=== PATIENT | female | born 1995 | race Caucasian/White ===

== ENCOUNTER 2019-10-19 23:44 | Emergency (ER) | payer MEDICAID, SELFPAY ==
[2019-10-19 23:44] VITALS: BP 137/84; PULSE 119; RESP 16; TEMP 36.7; O2SAT 100; BMI 23.6
--- NOTE | 2019-10-19 23:47 | PC.NURSE ---
spoke to poision control. they advised to check cbc, bmp, ck, drug screen. monitor pt for 4-6 hours after ingestion. give benzos for aggitation.
--- NOTE | 2019-10-19 23:49 | PC.NURSE ---
pt took a half of pack of medicated nerds rope. each package is 8 servings with 400mg of thc per servicing. pt took approx 1600 mg of thc.
[2019-10-19 23:55] VITALS: BMI 23.6
--- NOTE | 2019-10-20 00:12 | XR_ITS ---
PROCEDURE: XR CHEST 2V CLINICAL HISTORY: overdose Smoker COMPARISON: No exams were available for comparison FINDINGS: There is a pectus deformity which obscures the right side of the heart. Unremarkable cardiovascular structures. There is increased density along the right heart border consistent with underlying pectus deformity. Ill-defined increased density is present over the T10 vertebral body anteriorly possibly due to summation artifact. Cannot exclude underlying nodule. Follow-up is suggested. The remaining lungs are clear No acute bony abnormalities. IMPRESSION: No acute finding. Pectus deformity. Increased density overlying the T10 vertebral body on the lateral view possibly due to summation artifact. Follow-up suggested as underlying nodule cannot be excluded Dictated by: Babar Douglas MD 10/20/2019 05:25 Electronically signed by Babar Douglas MD in [place] 10/20/2019 05:25
--- NOTE | 2019-10-20 00:16 | HMH.EDOD ---
ED Disposition Clinical Impression: Accidental cannabis overdose Qualifiers: Encounter type: initial encounter Qualified Code(s): T40.7X1A - Poisoning by cannabis (derivatives), accidental (unintentional), initial encounter Disposition: Home, Self-Care Condition on Discharge: Good Instructions: DI for Drug Overdose in Adults Additional Instructions: call pcp for follow up Referrals: Provider,Referral, [Primary Care Provider] - - Critical Care Critical Care Time: No Attestation: On 10/19/19, the high probability of a clinically significant, sudden or life threatening deterioration of the following system(s) required my full and direct attention, intervention and personal management. The time I documented below is in addition to time spent performing reported procedures but includes the following listed in this critical care notation. Medical Decision Making - Medical Records Medical records reviewed: Yes: I reviewed the patient's medical records. - Georges Inquiry Pt receiving controlled substance: No Vital Signs: 10/19/19 23:44 10/20/19 01:06 Temperature 98.1 F Temperature Source Oral Pulse Rate [Left Radial] 119 H 93 H Respiratory Rate 16 16 Blood Pressure [Right Arm] 137/84 126/76 Blood Pressure Mean [Right Arm] 101 92 Blood Pressure Source [Right Arm] Automatic Cuff Blood Pressure Position [Right Arm] Sitting 02 Sat by Pulse Oximetry 100 98 Oxygen Delivery Method Room Air Room Air - Lab Data Lab results reviewed: Yes: I reviewed the patient's lab results. Lab Results 10/19/19 23:40: WBC 13.8 H, RBC 4.54, Hgb 13.5, Hct 39.8, MCV 87.8, MCH 29.8, MCHC 34.0, RDW 12.1, Plt Count 432 H, MPV 7.9, Neut % (Auto) 66.9, Lymph % (Auto) 27.2, Anderson % (Auto) 4.0, Eos % (Auto) 1.4, Baso % (Auto) 0.5, Neut # (Auto) 9.2 H, Lymph # (Auto) 3.8, Anderson # (Auto) 0.6, Eos # (Auto) 0.2, Baso # (Auto) 0.1 10/19/19 23:40: Sodium 139, Potassium 3.2 L, Chloride 103, Carbon Dioxide 25, Anion Gap 14.2, BUN 15, Creatinine 0.80, Estimated Creat Clear 122, Estimated GFR 90, Est GFR ( Amer) 109, Glucose 158 H, Calcium 9.5, Total Bilirubin 0.2, AST 51 H, ALT 22, Alkaline Phosphatase 75, Troponin I < 0.01, Total Protein 8.1, Albumin 4.9, Globulin 3.2, Albumin/Globulin Ratio 1.5, Salicylates < 1.0 L, Acetaminophen < 10 L 10/19/19 23:40: Plasma/Serum Alcohol < 10 10/19/19 23:40: Total Creatine Kinase 124 10/20/19 00:08: Urine Color Yellow, Urine Appearance Cloudy, Urine pH 6.0, Ur Specific [place] >= 1.030, Urine Protein 2+, Urine Glucose (UA) Negative, Urine Ketones Trace, Urine Blood Negative, Urine Nitrate Negative, Urine Bilirubin Negative, Urine Urobilinogen 0.2, Ur Leukocyte Esterase Negative, Urine WBC Occasional, Ur Squamous Epith Cells 10-20, Amorphous Sediment Trace, Urine Mucus 4+ 10/20/19 00:08: Urine HCG, Qual Negative 10/20/19 00:08: Urine Opiates Screen Negative, Urine Methadone Screen Negative, Ur Barbituates Screen Negative, Ur Phencyclidine Scrn Negative, Ur Amphetamines Screen Negative, U Benzodiazepines Scrn Negative, Urine Cocaine Screen Negative, U Marijuana (THC) Screen Positive H Result diagrams: 10/19/19 23:40 10/19/19 23:40 Orders (Tests/Meds): ED MEDICATIONS Generic Name Dose Route Start Last Admin Trade Name Freq PRN Reason Stop Dose Admin Sodium Chloride 1,000 mls @ 999 mls/hr 10/20/19 00:15 10/20/19 00:15 Sod Chlor 0.9% 1000ml Bag IV 10/20/19 01:15 999 mls/hr .Q1H1M BOBY Administration ORDERS Category Date Time Status XR chest 2V Stat Exams 10/20/19 00:12 Ordered Troponin I Q3H Lab 10/20/19 03:15 Ordered Troponin I Q3H Lab 10/20/19 06:15 Ordered - Radiology Data #1 Image(s): Chest Image Reviewed: Yes I reviewed the patient's radiology image Preliminary Findings: Normal/NAD - Reevaluation(s) Time: 01:15 Reevaluation #1: doing ok Medical Decision Narrative: discussed with poison control Overdose HPI - General Chief Complaint: Overdose State
[2019-10-20 00:21] LABS: Basophils # 0.1 K/mm3 (0-0.2); Basophils % 0.5 % (0.1-2.0); Eosinophils # 0.2 K/mm3 (0.0-0.4); Eosinophils % 1.4 % (0.1-12.0); Hematocrit 39.8 % (37.0-47.0); Hemoglobin 13.5 g/dL (12.2-16.2); Lymphocytes # 3.8 K/mm3 (0.7-4.5); Lymphocytes % 27.2 % (10-50); Mean Corpuscular Hemoglobin 29.8 pg (27.0-31.2); Mean Corpuscular Volume 87.8 fl (81-99); Mean Platelet Volume 7.9 fl (7.4-10.4); Monocytes # 0.6 K/mm3 (0.1-1.0); Neutrophils # 9.2 K/mm3 (1.8-7.8); Neutrophils % 66.9 % (37.0-80.0); Platelet Count 432 K/mm3 (142-424); Red Blood Count 4.54 M/mm3 (4.20-5.40); Red Cell Distribution Width 12.1 % (11.5-17.5); White Blood Count 13.8 K/mm3 (4.8-10.8)
[2019-10-20 00:22] LABS: Microscopic, Urine URINE MICROSCOPIC (MICROSCOPIC)
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
[2019-10-20 00:29] LABS: Alanine Aminotransferase 22 U/L (12-78); Albumin Level 4.9 g/dl (3.5-5.0); Albumin/Globulin Ratio 1.5 (1.1-1.8); Alkaline Phosphatase 75 U/L (38-126); Anion Gap 14.2 mEq/L (5-15); Aspartate Amino Transferase 51 U/L (14-36); Bilirubin,Total 0.2 mg/dl (0.2-1.3); Blood Urea Nitrogen 15 mg/dl (7-17); Calcium 9.5 mg/dl (8.4-10.2); Carbon Dioxide 25 mmol/L (22.0-30.0); Chloride 103 mmol/L (98-107); Creatinine Clearance Estimated 122 mL/min (50-200); Estimated Glomerular Filt Rate 90 ml/min (>60); GFR (African American) 109 ML/MIN (>60); Globulin 3.2 g/dL (1.3-3.2); Glucose 158 mg/dl (74-100); Potassium 3.2 mmoL/L (3.5-5.1); Sodium 139 mmol/L (136-145); Total Protein,Serum 8.1 g/dl (6.3-8.2)
[2019-10-20 00:33] LABS: Urine Pregnancy, HCG Qual. Negative (Negative)
[2019-10-20 00:37] LABS: Creatine Kinase 124 U/L (30-135)
[2019-10-20 00:38] LABS: Appearance,Urine CLOUDY (Clear); Bilirubin,Urine Negative (Negative); Blood, Urine Negative (Negative); Color,Urine YELLOW (Yellow); Glucose,Urine (UA) Negative (Negative); Ketones,Urine TRACE (Negative); Leukocyte Esterase,Urine Negative (Negative); Nitrate,Urine Negative (Negative); Protein,Urine 2+ (Negative); Specific Gravity, Urine >= 1.030 (1.005-1.030); Urobilinogen,Urine 0.2 EU/dl (0.2)
[2019-10-20 00:38] LABS: Acetaminophen < 10 ug/ml (10-30); Ethyl Alcohol < 10 mg/dl (0-10); Salicylate < 1.0 mg/dL (2.0-20.0)
[2019-10-20 00:40] LABS: Barbiturates Screen,Urine Negative ng/ml (<200); Benzodiazepines Screen,Urine Negative ng/ml (<200)
[2019-10-20 00:40] LABS: Troponin I < 0.01 ng/ml (0.00-0.034)
[2019-10-20 00:41] LABS: Amphetamine/Metha Screen,Urine Negative ng/ml (<1000)
[2019-10-20 00:42] LABS: Cannabinoid Screen,Urine Positive ng/ml (<50); Cocaine Screen,Urine Negative ng/ml (<300)
[2019-10-20 00:43] LABS: Methadone Screen,Urine Negative ng/ml (<300); Opiate Screen,Urine Negative ng/ml (<300)
[2019-10-20 00:44] LABS: Phencyclidine Screen,Urine Negative ng/ml (<25)
[2019-10-20 00:46] LABS: Amorphous Sediment,Urine Trace /lpf; Mucus,Urine 4+ /lpf; WBC,Urine Occasional #/hpf (0-3)
--- NOTE | 2019-10-20 00:47 | PC.NURSE ---
patient requested Darryl Kelvin [phone] be updated her condition. Update given.
[2019-10-20 01:06] VITALS: BP 126/76; PULSE 93; RESP 16; O2SAT 98
--- NOTE | 2019-10-20 01:30 | PC.NURSE ---
spoke with Josi from poison control on pt updated condition and plan for discharge in a couple of hours
[2019-10-20 02:00] VITALS: BP 108/58; PULSE 75; RESP 16; O2SAT 99
[2019-10-20 02:30] VITALS: BP 107/58; PULSE 75; RESP 18; O2SAT 99
[2019-10-20 03:26] VITALS: BP 103/67; PULSE 77; RESP 16; TEMP 36.7; O2SAT 98
--- NOTE | 2019-10-22 12:01 | PC.NURSE ---
Spoke with Gal in rad about some findings on the chest x-ray. Pt had Dr. Glass listed as PCP in [facility]. Called and let them know pt had abnormalities on her chest x-ray. She asked that we fax the report over to the office. Called Gal back and gave her the fax number of so that she could fax the reports over to the physicians office. She advised she would.
== END 2019-10-20 03:29 | disposition home or self-care (01) ==
PROVIDERS: Emergency Provider Emergency Medicine
DX: T40.7X1A Poisoning by cannabis (derivatives), accidental (unintentional), initial encounter (principal); F17.210 Nicotine dependence, cigarettes, uncomplicated
CPT/HCPCS: 71046; 80053; 80305; 80329; 81001; 81025; 82550; 84484; 85025; 93005; 96365; 99283

== ENCOUNTER 2019-12-16 13:15 | Emergency (ER) | payer MEDICAID, SELFPAY ==
--- NOTE | 2019-12-16 13:28 | HMH.EDUTC ---
[facility] [place] Clinical Impression: UTI (urinary tract infection) Qualifiers: Urinary tract infection type: site unspecified Hematuria presence: with hematuria Qualified Code(s): N39.0 - Urinary tract infection, site not specified Disposition: Home, Self-Care Condition on Discharge: Good Instructions: Urinary Tract Infection Additional Instructions: Drink plenty of fluids. Take tylenol or ibuprofen for pain or fever. Take the medications as directed. Follow up with your regular doctor. GO TO THE ER FOR ANY WORSENING SYMPTOMS Follow up with your regular doctor if you're not getting better with in a couple of days. We sent the urine for a culture, but this takes 3 days to complete. Prescriptions: Ondansetron [Zofran 4mg ODT] 4 mg PO Q8HP PRN #20 tab.rapdis PRN Reason: Nausea Transmission Status: Received by [facility] Sulfamethoxazole/Trimethoprim [Bactrim DS tablet] 1 each PO BID 7 Days #14 tab Transmission Status: Received by [facility] Phenazopyridine HCl [Pyridium 200mg Tablet] 200 pow PO TID #6 tab Transmission Status: Received by [facility] Referrals: Joshua Glass [Primary Care Provider] - Time of Disposition: 13:53 Medical Decision Making - Medical Records Medical records reviewed: No: I reviewed the patient's medical records. - Georges Inquiry Pt receiving controlled substance: No Vital Signs: 12/16/19 13:37 12/16/19 13:54 Temperature 98.1 F 98.1 F Temperature Source Oral Pulse Rate 73 Pulse Rate [Right Brachial] 73 Respiratory Rate 20 20 Blood Pressure 138/84 Blood Pressure [Right Arm] 138/84 Blood Pressure Mean [Right Arm] 102 Blood Pressure Source [Right Arm] Automatic Cuff Blood Pressure Position [Right Arm] Sitting 02 Sat by Pulse Oximetry 98 Oxygen Delivery Method Room Air - Lab Data Lab results reviewed: Yes: I reviewed the patient's lab results. Lab Results 12/16/19 13:49: Urine Color Yellow, Urine Appearance Clear, Urine pH 6.0, Ur Specific [place] 1.030, Urine Protein 3+, Urine Glucose (UA) Negative, Urine Ketones Negative, Urine Blood 3+, Urine Nitrate Negative, Urine Bilirubin Negative, Urine Urobilinogen 1, Ur Leukocyte Esterase Trace [facility] [place] - General Stated complaint: possible UTI Time Seen by Provider: 12/16/19 13:29 - History of Present Illness Provider Complaint: She c/o burning while urinating, low back discomfort and seeing some blood in her urine since last night. She states that her symptoms began kind of abruptly. She does not have a history of frequent uti's. She states that her period is not late and she could not be . - Related Data Previous Rx's Medication Instructions Recorded Ondansetron [Zofran 4mg ODT] 4 mg PO Q8HP PRN #20 tab.rapdis 12/16/19 Phenazopyridine HCl [Pyridium 200 pow PO TID #6 tab 12/16/19 200mg Tablet] Sulfamethoxazole/Trimethoprim 1 each PO BID 7 Days #14 tab 12/16/19 [Bactrim DS tablet] Allergies Allergy/AdvReac Type Severity Reaction Status Date / Time codeine [CODEINE] Allergy Unknown Verified 03/02/19 13:06 [facility] History - Hepatitis A Screen Attestation statement:: This patient has been screened for Hepatitis A risk factors. I have reviewed the patient's past medical history: Yes - Social History Smoking Status: Current every day smoker # Packs/Day (cigarettes): 1 Alcohol Intake: current Alcohol Intake Frequency:: 0-2 drinks per day Occupational Status: student ROS Obtained: Yes All systems reviewed & no additional complaints - Constitutional Constitutional: Denies chills, Denies fever(s), Reports poor appetite, Reports malaise - Eyes Eyes: Denies eye discharge - ENT Ears, Nose, Mouth, and Throat: Denies dizziness, Denies otalgia, Denies sinus pressure - Cardiovascular Cardiovascular: Denies chest pain - Respiratory Respiratory: No chest congestion, No cough - Gastrointestinal Gastrointestinga
[2019-12-16 13:37] VITALS: BP 138/84; PULSE 73; RESP 20; TEMP 36.7; O2SAT 98; BMI 28.5
[2019-12-16 13:54] VITALS: BP 138/84; PULSE 73; RESP 20; TEMP 36.7; O2SAT 98
[2019-12-16 14:15] LABS: Apearance,Urine Clear (Clear); Color,Urine Yellow (Yellow); Glucose,Urine (UA) Negative (Negative); Ketones,Urine Negative (Negative); Protein,Urine 3+ (Negative)
[2019-12-16 14:16] LABS: Bilirubin,Urine Negative (Negative); Blood, Urine 3+ (Negative); UTC Leukocyte Esterase,Urine Trace (Negative); UTC Nitrate,Urine Negative (Negative); Urobilinogen,Urine 1 EU/dl (0.2)
== END 2019-12-16 13:56 | disposition home or self-care (01) ==
PROVIDERS: Emergency Provider Nurse Practitioner Family; PCP Internal Medicine
DX: N39.0 Urinary tract infection, site not specified (principal); F17.210 Nicotine dependence, cigarettes, uncomplicated; Z88.5 Allergy status to narcotic agent
CPT/HCPCS: 81003; 87086; 87088; 87186; 99201

== ENCOUNTER 2019-12-19 16:29 | Emergency (ER) | payer MEDICAID, SELFPAY ==
[2019-12-19 16:43] VITALS: BP 111/74; PULSE 79; RESP 18; TEMP 36.7; O2SAT 98; BMI 27.3
[2019-12-19 16:45] VITALS: BP 111/74; PULSE 79; RESP 18; TEMP 36.7; O2SAT 98; BMI 27.3
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
[2019-12-19 17:13] VITALS: BP 111/74; PULSE 79; RESP 18; TEMP 36.7; O2SAT 98
== END 2019-12-19 17:20 | disposition home or self-care (01) ==
PROVIDERS: Emergency Provider Nurse Practitioner Family; PCP Internal Medicine
DX: S05.01XA Injury of conjunctiva and corneal abrasion without foreign body, right eye, initial encounter (principal); W51.XXXA Accidental striking against or bumped into by another person, initial encounter; Y92.019 Unspecified place in single-family (private) house as the place of occurrence of the external cause; F17.210 Nicotine dependence, cigarettes, uncomplicated
CPT/HCPCS: 99201

== ENCOUNTER → 2020-01-15 16:31 | Outpatient (CLI) | payer MEDICAID, SELFPAY | PROVIDERS: PCP Internal Medicine; Visit Provider Nurse Practitioner | DX: Z11.1 Encounter for screening for respiratory tuberculosis (principal) ==

== ENCOUNTER → 2020-01-22 13:51 | Outpatient (CLI) | payer MEDICAID, SELFPAY | PROVIDERS: PCP Internal Medicine; Visit Provider Internal Medicine | DX: Z11.1 Encounter for screening for respiratory tuberculosis (principal) ==

== ENCOUNTER 2020-01-28 14:33 | Emergency (ER) | payer MEDICAID, SELFPAY ==
[2020-01-28 14:34] VITALS: BP 138/40; PULSE 87; RESP 19; TEMP 36.7; O2SAT 98; BMI 25.8
--- NOTE | 2020-01-28 14:48 | HMH.EDUTC ---
[facility] [place] Disposition Clinical Impression: Burning with urination Disposition: Home, Self-Care Condition on Discharge: Good Instructions: DI for Urinary Tract Infection (UTI) Additional Instructions: *Increase fluids. Water not Soda or Tea Make sure that you are drinking plenty of fluids and watching for signs of infection such as strong smell of urine, color changes etc Call your doctor office and make appointment for 48 hours (2 days from today) if no improvement or any worsening of symptoms Make sure to follow up Return if needed Straight to ER if any life threatening symptoms Referrals: Joshua Glass [Primary Care Provider] - As needed Time of Disposition: 15:13 Medical Decision Making - Georges Inquiry Pt receiving controlled substance: No Georges was queried for this patient: No Vital Signs: 01/28/20 14:34 Temperature 98.1 F Temperature Source Oral Pulse Rate [Right] 87 Respiratory Rate 19 Blood Pressure [Right Arm] 138/40 L Blood Pressure Mean [Right Arm] 72 02 Sat by Pulse Oximetry 98 - Lab Data Lab results reviewed: Yes: I reviewed the patient's lab results. Lab Results 01/28/20 14:36: Urine Color Yellow, Urine Appearance Clear, Urine pH 6.0, Ur Specific [place] 1.015, Urine Protein Negative, Urine Glucose (UA) Negative, Urine Ketones Negative, Urine Blood 2+, Urine Nitrate Negative, Urine Bilirubin Negative, Urine Urobilinogen 0.2, Ur Leukocyte Esterase Negative 01/28/20 15:05: Tst Clinic Negative [facility] [place] HPI - General Stated complaint: UTI Time Seen by Provider: 01/28/20 14:48 Mode of Arrival: Ambulatory Limitations: No Limitations Description of Symptoms (Recalled from Triage Doc. by RN): Frequent urination x2 days. HEENT Symptoms (Recalled from RN notes): No Resp Symptoms (Recalled from RN notes): No Skin Symptoms (Recalled from RN notes): No MS Symptoms (Recalled from RN notes): No Functional Status (Recalled from RN notes): na - History of Present Illness Provider Complaint: Patient states that she has been having burning with urination, frequency and urgency for the last couple of days and feels like it did when she had a UTI about a month ago States that she thinks she had some blood in her urine earlier so she come in to get checked - Related Data Previous Rx's Medication Instructions Recorded Ondansetron [Zofran 4mg ODT] 4 mg PO Q8HP PRN #20 tab.rapdis 12/16/19 Phenazopyridine HCl [Pyridium 200 pow PO TID #6 tab 12/16/19 200mg Tablet] Sulfamethoxazole/Trimethoprim 1 each PO BID 7 Days #14 tab 12/16/19 [Bactrim DS tablet] Erythromycin Base [Erythromycin 1 cm EYE-RIGHT Q6H 5 Days #1 tube 12/19/19 3.5gm opth oinment] Ibuprofen [Ibuprofen 600mg 600 mg PO Q6HP PRN #30 tab 12/19/19 Tablet] Allergies Allergy/AdvReac Type Severity Reaction Status Date / Time codeine [CODEINE] Allergy Unknown Verified 03/02/19 13:06 - Worker's Comp Is this a Worker's Comp case?: No [facility] History - Hepatitis A Screen Drug use history?: No High risk sexual behaviors?: No History of sexually transmitted infection?: No Currently employed?: No Childcare worker?: No Do you have indoor plumbing?: Yes Do you have electricity?: Yes Attestation statement:: This patient has been screened for Hepatitis A risk factors. I have reviewed the patient's past medical history: Yes - Social History Smoking Status: Current every day smoker # Packs/Day (cigarettes): 1 Alcohol Intake: never Alcohol Intake Frequency:: 0-2 drinks per day Occupational Status: other ROS Obtained: Yes All systems reviewed & no additional complaints, Yes Systems reviewed as appropriate & no additional complaints - Constitutional Constitutional: Reports system reviewed and no additional complaints, except as docu, Denies body ache, Denies chills, Denies fever(s) - Cardiovascular Cardiovascular: Reports system reviewed and no additional complaints, except as docu - Respiratory Respirat
[2020-01-28 15:02] LABS: Apearance,Urine Clear (Clear); Bilirubin,Urine Negative (Negative); Blood, Urine 2+ (Negative); Color,Urine Yellow (Yellow); Glucose,Urine (UA) Negative (Negative); Ketones,Urine Negative (Negative); Protein,Urine Negative (Negative); Specific Gravity, Urine 1.015 (1.005-1.030); UTC Leukocyte Esterase,Urine Negative (Negative); UTC Nitrate,Urine Negative (Negative); Urobilinogen,Urine 0.2 EU/dl (0.2)
[2020-01-28 15:06] LABS: UTC Pregnancy Test, Urine Negative (Negative)
[2020-01-28 15:29] VITALS: BP 132/87; PULSE 80; RESP 17; TEMP 36.7; O2SAT 100
== END 2020-01-28 15:29 | disposition home or self-care (01) ==
PROVIDERS: Emergency Provider Nurse Practitioner; PCP Internal Medicine
DX: R30.0 Dysuria (principal); Z88.5 Allergy status to narcotic agent; F17.210 Nicotine dependence, cigarettes, uncomplicated
CPT/HCPCS: 81003; 81025; 99201

== ENCOUNTER 2020-03-16 13:25 | Emergency (ER) | payer MEDICAID, SELFPAY ==
[2020-03-16 13:56] VITALS: BP 133/77; PULSE 81; RESP 18; TEMP 36.6; O2SAT 99; BMI 26.6
--- NOTE | 2020-03-16 14:18 | HMH.EDUTC ---
[facility] [place] Disposition Clinical Impression: Sinusitis Qualifiers: Sinusitis location: unspecified location Chronicity: unspecified Qualified Code(s): J32.9 - Chronic sinusitis, unspecified Acute bronchitis Qualifiers: Bronchitis organism: unspecified organism Qualified Code(s): J20.9 - Acute bronchitis, unspecified Disposition: Home, Self-Care Condition on Discharge: Good Instructions: Sinusitis, Sinus Headache, Acute Bronchitis, DI for Sinusitis Additional Instructions: ? Start antibiotic today. Be sure to complete entire prescription even if feeling better ? Monitor temp. Tylenol every 4 hours as needed and / or ibuprofen every 6 hours as needed ( As long as your primary care physician has told you that it ok to take both. For fever/aches/pains ER if no less than 101 despite Tylenol or Motrin ? Humidifier/vaporizer or hot steamy shower ? Inhaler every 4-6 hours as needed like we discussed. If unsure how to use it, ask pharmacist to demonstrate how. Should help open airways and improve cough, wheezing, and shortness of breath ? Mucinex during the day for your cough and cough suppressant only at night. Be sure to drink lots of water. Insurance may not cover a prescriptions for mucinex. Might be cheaper to get 400mg tablets and take 2 tablet in the morning, mid-day and evening with lots of water. *Start steroid today. Helps with inflammation therefore, cough and wheezing. Follow directions on the package. Reviewed side effects. Patient reports taking them before. Follow up IMMEDIATELY for new or worsening of symptoms OR no noticeable improvement over the next 48-72 hours. 911 immediately for any life threatening symptoms such as chest pain or difficulty breathing Prescriptions: Albuterol Sulfate [Proventil-HFA 90mcg/puff Inh] 1 - 2 puffs IH Q4HP PRN #1 inh PRN Reason: Shortness Of Breath [facility] Status[facility] methylPREDNISolone [Medrol 4mg tab] 4 mg PO DIRECTED #21 tab Transmission Status: [facility] Azithromycin [Z-Kye 250mg Tab] 250 mg PO DIRECTED #6 tab Transmission Status: Pending to [facility] Referrals: Joshua Glass [Primary Care Provider] - As needed Time of Disposition: 14:35 Medical Decision Making - Georges Inquiry Pt receiving controlled substance: No Georges was queried for this patient: No Vital Signs: 03/16/20 13:56 Temperature 97.8 F Temperature Source Oral Pulse Rate [Right Brachial] 81 Respiratory Rate 18 Blood Pressure [Right Arm] 133/77 Blood Pressure Mean [Right Arm] 95 Blood Pressure Source [Right Arm] Automatic Cuff Blood Pressure Position [Right Arm] Sitting 02 Sat by Pulse Oximetry 99 Oxygen Delivery Method Room Air - Lab Data Lab results reviewed: Yes: I reviewed the patient's lab results. [facility] [place] HPI - General Stated complaint: possible bronchitis Time Seen by Provider: 03/16/20 14:18 Mode of Arrival: Ambulatory Source of Information: Patient Limitations: No Limitations Description of Symptoms (Recalled from Triage Doc. by RN): PATIENT C/O WET COUGH, SOA, HEADACHE, FATIGUE, AND LOW-GRADE FEVER HEENT Symptoms (Recalled from RN notes): No Resp Symptoms (Recalled from RN notes): No Skin Symptoms (Recalled from RN notes): No MS Symptoms (Recalled from RN notes): No Functional Status (Recalled from RN notes): WNL - History of Present Illness Provider Complaint: Patient states that she has been having wet cough, sinus drainage and pressure along with headache, sore throat and congestion States that she has not been exposed to anything that she is aware of with COVID States that she has had bronchitis several times and feels like it did when she had it before - Related Data Previous Rx's Medication Instructions Recorded Albuterol Sulfate [Proventil-HFA 1 - 2 puffs IH Q4HP PRN #1 inh 03/16/20 90mcg/puff Inh] Azithromycin [Z-Kye 250mg Tab] 250 mg PO DIRECTED #6 tab 03/16/20 methylPREDNISolone [M
[2020-03-16 14:48] VITALS: BP 133/77; PULSE 81; RESP 18; TEMP 36.6; O2SAT 99
== END 2020-03-16 14:50 | disposition home or self-care (01) ==
PROVIDERS: Emergency Provider Nurse Practitioner; PCP Internal Medicine
DX: J20.9 Acute bronchitis, unspecified (principal); J32.9 Chronic sinusitis, unspecified; F17.210 Nicotine dependence, cigarettes, uncomplicated; Z88.5 Allergy status to narcotic agent
CPT/HCPCS: 99201

== ENCOUNTER 2020-03-17 13:39 | Emergency (ER) | payer MEDICAID, SELFPAY ==
[2020-03-17 14:10] VITALS: BP 143/83; PULSE 79; RESP 20; TEMP 36.8; O2SAT 98; BMI 26.6
--- NOTE | 2020-03-17 14:54 | HMH.EDUTC ---
[facility] [place] Disposition Clinical Impression: Bronchitis, Gastroenteritis Disposition: Home, Self-Care Condition on Discharge: Good Instructions: DI for Viral Gastroenteritis -- Adult, DI for Acute Bronchitis Additional Instructions: Drink plenty of fluids. Take tylenol or ibuprofen for pain or fever. Take the medications as directed. Follow up with your regular doctor. GO TO THE ER FOR ANY WORSENING SYMPTOMS Take the ondesetron (zofran) for nausea. FOLLOW THE DIRECTIONS ON THE COVID-19 HAND OUT THAT WE GAVE YOU REGARDING SELF-ISOLATION UNTIL YOU KNOW YOUR COVID-19 RESULTS Prescriptions: Ondansetron [Zofran 4mg ODT] 4 mg PO Q8HP PRN #20 tab.rapdis PRN Reason: Nausea Transmission Status: Received by [id number] Referrals: Joshua Glass [Primary Care Provider] - Forms: Work/School Release Time of Disposition: 15:03 Medical Decision Making - Medical Records Medical records reviewed: No: I reviewed the patient's medical records. - Georges Inquiry Pt receiving controlled substance: No Vital Signs: 03/17/20 14:10 03/17/20 15:12 Temperature 98.2 F 98.2 F Temperature Source Oral Oral Pulse Rate 79 Pulse Rate [Right Radial] 79 Respiratory Rate 20 20 Blood Pressure 143/83 H Blood Pressure [Right Arm] 143/83 H Blood Pressure Mean [Right Arm] 103 Blood Pressure Source Automatic Cuff Blood Pressure Source [Right Arm] Automatic Cuff Blood Pressure Position Sitting Blood Pressure Position [Right Arm] Sitting 02 Sat by Pulse Oximetry 98 Oxygen Delivery Method Room Air Room Air [facility] [place] HPI - General Stated complaint: headache, sore throat, diarrhea Time Seen by Provider: 03/17/20 14:15 Mode of Arrival: Ambulatory Source of Information: Patient Limitations: No Limitations Description of Symptoms (Recalled from Triage Doc. by RN): Pt reports she was seen in [facility] yesterday, diagnosed with bronchitis. Returns today with new symptoms of fever, diarrhea, and loss of appetite. Pt requesting a covid test. HEENT Symptoms (Recalled from RN notes): No Resp Symptoms (Recalled from RN notes): No Skin Symptoms (Recalled from RN notes): No MS Symptoms (Recalled from RN notes): No Functional Status (Recalled from RN notes): n/a - History of Present Illness Provider Complaint: She states that she was in this [facility] yesterday with chest congestion. Thru last night she began to run a fever and have n/v. - Related Data Previous Rx's Medication Instructions Recorded Albuterol Sulfate [Proventil-HFA 1 - 2 puffs IH Q4HP PRN #1 inh 03/16/20 90mcg/puff Inh] Azithromycin [Z-Kye 250mg Tab] 250 mg PO DIRECTED #6 tab 03/16/20 methylPREDNISolone [Medrol 4mg 4 mg PO DIRECTED #21 tab 03/16/20 tab] Ondansetron [Zofran 4mg ODT] 4 mg PO Q8HP PRN #20 tab.rapdis 03/17/20 Allergies Allergy/AdvReac Type Severity Reaction Status Date / Time codeine [CODEINE] Allergy Unknown Verified 03/02/19 13:06 - Worker's Comp Is this a Worker's Comp case?: No [facility] History - Hepatitis A Screen Drug use history?: No High risk sexual behaviors?: No History of sexually transmitted infection?: No Currently employed?: No Childcare worker?: No Do you have indoor plumbing?: Yes Do you have electricity?: Yes Attestation statement:: This patient has been screened for Hepatitis A risk factors. I have reviewed the patient's past medical history: Yes - Social History Smoking Status: Current every day smoker # Packs/Day (cigarettes): 1 Alcohol Intake: never Alcohol Intake Frequency:: 0-2 drinks per day Occupational Status: other ROS Obtained: Yes All systems reviewed & no additional complaints - Constitutional Constitutional: Reports chills, Denies fever(s), Reports poor appetite, Reports malaise - Eyes Eyes: Denies eye discharge - ENT Ears, Nose, Mouth, and Throat: Reports as per HPI - Cardiovascular Cardiovascular: Denies chest pain - Respiratory Respiratory: Yes
[2020-03-17 15:12] VITALS: BP 143/83; PULSE 79; RESP 20; TEMP 36.8; O2SAT 98
== END 2020-03-17 15:13 | disposition home or self-care (01) ==
PROVIDERS: Emergency Provider Nurse Practitioner Family; PCP Internal Medicine
DX: J20.9 Acute bronchitis, unspecified (principal); K52.9 Noninfective gastroenteritis and colitis, unspecified; Z20.828 Contact with and (suspected) exposure to other viral communicable diseases; Z88.5 Allergy status to narcotic agent
CPT/HCPCS: 99201; U0003

== ENCOUNTER 2021-01-12 19:34 | Emergency (ER) | payer OTHER, SELFPAY ==
[2021-01-12 20:25] VITALS: BP 136/89; PULSE 76; RESP 21; TEMP 36.9; O2SAT 99; BMI 26.5
--- NOTE | 2021-01-12 20:58 | HMH.EDUTC ---
[facility] [place] Clinical Impression: Corneal abrasion Qualifiers: Encounter type: initial encounter Laterality: right Qualified Code(s): S05.01XA - Injury of conjunctiva and corneal abrasion without foreign body, right eye, initial encounter Disposition: Home, Self-Care Condition on Discharge: Good Instructions: DI for Corneal Abrasion, Corneal Abrasion, Erythromycin Ophthalmic Additional Instructions: Follow up with Dr Rodriguez at [facility] if no improvement or any worsening of symptoms Erythromicn one ribbon in right eye every 6 hours x 3 days Over the counter Motrin may help with pain Remove eye patch tomorrow and use medication that you was given in the [facility] Straight to ER if any life threatening symptoms Referrals: Joshua Glass MD [Primary Care Provider] - As needed [facility] [Other] Time of Disposition: 21:24 Medical Decision Making - Georges Inquiry Pt receiving controlled substance: No Georges was queried for this patient: No Vital Signs: 01/12/21 20:25 Temperature 98.4 F Temperature Source Oral Pulse Rate [Left] 76 Respiratory Rate 21 Blood Pressure [Right Arm] 136/89 Blood Pressure Mean [Right Arm] 104 02 Sat by Pulse Oximetry 99 [facility] [place] HPI - General Stated complaint: WC 01/12 0900 scratched R Eye Time Seen by Provider: 01/12/21 20:58 Mode of Arrival: Ambulatory Source of Information: Patient Limitations: No Limitations Description of Symptoms (Recalled from Triage Doc. by RN): pt c/o a corneal abrasion to her R eye. she scratched her eye at 0900 while trying to put on her N95. HEENT Symptoms (Recalled from RN notes): Yes (painful R eye) Resp Symptoms (Recalled from RN notes): No Skin Symptoms (Recalled from RN notes): No MS Symptoms (Recalled from RN notes): No Functional Status (Recalled from RN notes): na - History of Present Illness Provider Complaint: Patient states that she was taking off her N95 mask this morning when the mask flipped up and hit her in her right eye and feels like it scratched her eye States that all day today she has been having burning and pain in her right eye and sensative to light States that this evening her eye was still watering and hurting when she would blink or open her eye so she came in to get it checked - Related Data Previous Rx's Medication Instructions Recorded Albuterol Sulfate [Proventil-HFA 1 - 2 puffs IH Q4HP PRN #1 inh 03/16/20 90mcg/puff Inh] Azithromycin [Z-Kye 250mg Tab] 250 mg PO DIRECTED #6 tab 03/16/20 methylPREDNISolone [Medrol 4mg 4 mg PO DIRECTED #21 tab 03/16/20 tab] Ondansetron [Zofran 4mg ODT] 4 mg PO Q8HP PRN #20 tab.rapdis 03/17/20 Allergies Allergy/AdvReac Type Severity Reaction Status Date / Time codeine [CODEINE] Allergy Unknown Verified 03/02/19 13:06 - Worker's Comp Is this a Worker's Comp case?: No [facility] History - Hepatitis A Screen Drug use history?: No High risk sexual behaviors?: No History of sexually transmitted infection?: No Currently employed?: No Childcare worker?: No Do you have indoor plumbing?: Yes Do you have electricity?: Yes Attestation statement:: This patient has been screened for Hepatitis A risk factors. I have reviewed the patient's past medical history: Yes - Social History Smoking Status: Current every day smoker # Packs/Day (cigarettes): 1 Alcohol Intake: never Alcohol Intake Frequency:: 0-2 drinks per day Occupational Status: other ROS Obtained: Yes All systems reviewed & no additional complaints, Yes Systems reviewed as appropriate & no additional complaints - Constitutional Constitutional: Reports system reviewed and no additional complaints, except as docu, Denies body ache, Denies chills, Denies fever(s) - Eyes Eyes: Reports system reviewed and no additional complaints, except as docu, Reports irritation, Reports other (watery eyes, hit herself in eye with mask) Physical Exam - General General appearance: alert, in n
[2021-01-12 21:28] VITALS: BP 136/89; PULSE 76; RESP 21; TEMP 36.9
== END 2021-01-12 21:29 | disposition home or self-care (01) ==
PROVIDERS: Emergency Provider Nurse Practitioner; PCP Internal Medicine
DX: S05.01XA Injury of conjunctiva and corneal abrasion without foreign body, right eye, initial encounter (principal); W22.8XXA Striking against or struck by other objects, initial encounter; Y92.69 Other specified industrial and construction area as the place of occurrence of the external cause; Y99.0 Civilian activity done for income or pay
CPT/HCPCS: 99202; G0463

== ENCOUNTER 2021-07-28 12:25 | Emergency (ER) | payer OTHER, SELFPAY ==
[2021-07-28 13:54] VITALS: BP 141/91; PULSE 83; RESP 16; TEMP 36.6; O2SAT 100; BMI 28.0
--- NOTE | 2021-07-28 14:20 | HMH.EDUTC ---
[facility] [place] Disposition Clinical Impression: URI (upper respiratory infection) Qualifiers: URI type: unspecified URI Qualified Code(s): J06.9 - Acute upper respiratory infection, unspecified Disposition: Home, Self-Care Condition on Discharge: Good Instructions: Sore Throat, DI for Headache, DI for Ear Pain-Adult Additional Instructions: *Monitor Temp, Over the counter Motrin or Tylenol as directed/as needed Tylenol every 4 hours and Motrin every 6 hours (as long as your family doctor has told you that you can take it) for fever or pain. and straight to ER if unable to lower temp less than 101.0 after medication given *Warm salt water gargles may help to soothe the throat *Throat Lozenges *Warm fluids like tea with honey may help to soothe the throat *Sleep elevated *Humidifier/Vaporizer *If you did not take Penicillin shot or was unable to, start taking antibiotic immediately and make sure that you take it for the FULL length of time although you should start to feel better in 24-48 hours *change toothbrush and toothpaste 24-48 hours after starting to take antibiotics so you do not reinfect yourself Monitor Temp. Tylenol and/or Ibuprofen as needed. ER if fever is no less than 101 despite alternating Tylenol and Ibuprofen * Encourage fluids, water, Gatorade, powerade, pedialyte if infant/toddler/or child *Cold fluids, popsicles and ice cream may feel good on his throat Follow up IMMEDIATELY for new or worsening symptoms or no Noticeable improvement over the next 48-72 hours. 911 for difficulty breathing or swallowing Prescriptions: Azithromycin [Z-Kye 250mg Tab] 250 mg PO DIRECTED #6 tab Transmission Status: Pending to [id number] Referrals: Darwin Pool MD [Primary Care Provider] - As needed Time of Disposition: 14:58 Medical Decision Making - Georges Inquiry Pt receiving controlled substance: No Georges was queried for this patient: No Vital Signs: 07/28/21 13:54 07/28/21 14:43 Temperature 97.9 F 97.9 F Temperature Source Oral Pulse Rate 83 Pulse Rate [Left] 83 Respiratory Rate 16 16 Blood Pressure 141/91 H Blood Pressure [Right Arm] 141/91 H Blood Pressure Mean [Right Arm] 107 02 Sat by Pulse Oximetry 100 - Lab Data Lab results reviewed: Yes: I reviewed the patient's lab results. Lab Results 07/28/21 13:50: Group A Strep Rapid Negative Orders (Tests/Meds): ORDERS Category Date Time Status Strep Screen Confirmation Stat Micro 07/28/21 13:50 Received [facility] [place] HPI - General Stated complaint: possible strep Time Seen by Provider: 07/28/21 14:20 Mode of Arrival: Ambulatory Source of Information: Patient Limitations: No Limitations Description of Symptoms (Recalled from Triage Doc. by RN): pt c/o a sore throat and NOVOA since yesterday. HEENT Symptoms (Recalled from RN notes): Yes Resp Symptoms (Recalled from RN notes): No Skin Symptoms (Recalled from RN notes): No MS Symptoms (Recalled from RN notes): No Functional Status (Recalled from RN notes): wnl - History of Present Illness Provider Complaint: Patient state that she has been having sore throat nasal congestion headache and swollen lymph nodes for the last couple of days States that she feels like she may have strep throat State that today she was still not feeling any better so she came in to get checked - Related Data Previous Rx's Medication Instructions Recorded Albuterol Sulfate [Proventil-HFA 1 - 2 puffs IH Q4HP PRN #1 inh 03/16/20 90mcg/puff Inh] Azithromycin [Z-Kye 250mg Tab] 250 mg PO DIRECTED #6 tab 03/16/20 methylPREDNISolone [Medrol 4mg 4 mg PO DIRECTED #21 tab 03/16/20 tab] Ondansetron [Zofran 4mg ODT] 4 mg PO Q8HP PRN #20 tab.rapdis 03/17/20 Azithromycin [Z-Kye 250mg Tab] 250 mg PO DIRECTED #6 tab 07/28/21 Allergies Allergy/AdvReac Type Severity Reaction Status Date / Time codeine [CODEINE] Allergy Unknown Verified 03/02/19 13:06 - Worker's Comp Is
[2021-07-28 14:39] LABS: Strep Scrn Group A (Rapid) Negative (Negative)
[2021-07-28 14:43] VITALS: BP 141/91; PULSE 83; RESP 16; TEMP 36.6
== END 2021-07-28 15:04 | disposition home or self-care (01) ==
PROVIDERS: Emergency Provider Nurse Practitioner; PCP Emergency Medicine
DX: J06.9 Acute upper respiratory infection, unspecified (principal)
CPT/HCPCS: 87430; 99202; G0463

== ENCOUNTER → 2021-12-22 10:50 | Outpatient (CLI) | payer OTHER, SELFPAY | PROVIDERS: PCP Internal Medicine Adolescent Medicine; Visit Provider Surgery | DX: R06.00 Dyspnea, unspecified (principal) | CPT/HCPCS: 93306 ==

== ENCOUNTER 2022-02-05 19:05 | Emergency (ER) | payer OTHER, SELFPAY ==
[2022-02-05 19:40] VITALS: BP 128/81; PULSE 89; RESP 19; TEMP 37.1; O2SAT 98; BMI 28.5
[2022-02-05 19:52] LABS: UTC Strep Screen (Rapid) Negative (Negative)
--- NOTE | 2022-02-05 20:07 | HMH.EDUTC ---
[facility] [place] Disposition Clinical Impression: Viral upper respiratory illness Disposition: Home, Self-Care Condition on Discharge: Good Instructions: DI for Viral Upper Respiratory Infection -- Adult, DI for COVID-19 (Suspected or Confirmed ), Preventing the Spread of Coronavirus Discharge Instructions Additional Instructions: *Monitor Temp, Over the counter Motrin or Tylenol as directed/as needed Tylenol every 4 hours and Motrin every 6 hours (as long as your family doctor has told you that you can take it) for fever or pain. and straight to ER if unable to lower temp less than 101.0 after medication given *Warm salt water gargles may help to soothe the throat *Throat Lozenges *Warm fluids like tea with honey may help to soothe the throat *Sleep elevated *Humidifier/Vaporizer Your throat swab was sent for culture. Those results are typically sent to your primary care. Be sure to follow up in 2-3 days with your family doctor/primary care physician if no improvement so they can review those result and treat if necessary. If you don?t have a primary care doctor, I recommend you get one but in the mean time, you will have to return to a walk in clinic Follow up IMMEDIATELY for new or worsening symptoms or no Noticeable improvement over the next 48-72 hours. 911 for difficulty breathing or swallowing You were tested for today for COVID19 your test result should be back in the next 24-48 hours, you may check your results on the [facility] My Health Portal Make sure to take your Vitamins Vit. C Vit D and Zinc if you can take them Referrals: Satinder Garcia MD [Primary Care Provider] - As needed Forms: Work/School Release Medical Decision Making - Georges Inquiry Pt receiving controlled substance: No Vital Signs: 02/05/22 19:40 Temperature 98.8 F Temperature Source Oral Pulse Rate [Right Brachial] 89 Respiratory Rate 19 Blood Pressure [Right Arm] 128/81 Blood Pressure Mean [Right Arm] 96 Blood Pressure Source [Right Arm] Automatic Cuff Blood Pressure Position [Right Arm] Sitting 02 Sat by Pulse Oximetry 98 Oxygen Delivery Method Room Air - Lab Data Lab results reviewed: Yes: I reviewed the patient's lab results. Lab Results 02/05/22 19:34: Strep Scn Rapid Clinic Negative Orders (Tests/Meds): ORDERS Category Date Time Status Covid-19 Nasal PCR ([facility]) Routine Lab 02/05/22 19:40 Received Strep Screen Confirmation Stat Micro 02/05/22 19:34 Received [facility] UTC HPI - General Stated complaint: strep and covid test,sore throat Time Seen by Provider: 02/05/22 20:07 Mode of Arrival: Ambulatory Source of Information: Patient Limitations: No Limitations Description of Symptoms (Recalled from Triage Doc. by RN): PATIENT C/O SORE THROAT, HEADACHE, BODY ACHES, FEVER AND DIARRHEA SINCE LAST NIGHT HEENT Symptoms (Recalled from RN notes): Yes Resp Symptoms (Recalled from RN notes): No Skin Symptoms (Recalled from RN notes): No MS Symptoms (Recalled from RN notes): No Functional Status (Recalled from RN notes): WNL - History of Present Illness Provider Complaint: Patient states that she started a couple days ago with sore throat States that last night she started feeling fatigue, body aches, and headache State that today she was still not feeling well so she came in to get tested for COVID and strep throat - Related Data Previous Rx's Medication Instructions Recorded Albuterol Sulfate [Proventil-HFA 1 - 2 puffs IH Q4HP PRN #1 inh 03/16/20 90mcg/puff Inh] Azithromycin [Z-Kye 250mg Tab] 250 mg PO DIRECTED #6 tab 03/16/20 methylPREDNISolone [Medrol 4mg 4 mg PO DIRECTED #21 tab 03/16/20 tab] Ondansetron [Zofran 4mg ODT] 4 mg PO Q8HP PRN #20 tab.rapdis 03/17/20 Azithromycin [Z-Kye 250mg Tab] 250 mg PO DIRECTED #6 tab 07/28/21 Allergies Allergy/AdvReac Type Severity Reaction Status Date / Time codeine [CODEINE] Allergy Unknown Verified 03/02/19 13:06 - Worker's Comp Is this a Wor
[2022-02-05 20:15] VITALS: BP 128/81; PULSE 89; RESP 19; TEMP 37.1; O2SAT 98
== END 2022-02-05 20:19 | disposition home or self-care (01) ==
PROVIDERS: Emergency Provider Nurse Practitioner; PCP Internal Medicine Adolescent Medicine
DX: J06.9 Acute upper respiratory infection, unspecified (principal)
CPT/HCPCS: 87880; 99212; C9803; G0463; U0003; U0005

== ENCOUNTER 2022-02-25 11:40 | Emergency (ER) | payer OTHER, SELFPAY ==
[2022-02-25 12:04] VITALS: BP 133/73; PULSE 85; RESP 16; TEMP 36.7; O2SAT 100; BMI 29.5
[2022-02-25 12:10] LABS: UTC Strep Screen (Rapid) Negative (Negative)
[2022-02-25 13:28] LABS: Basophils # 0.2 K/mm3 (0-0.2); Basophils % 1.5 % (0.1-2.0); Eosinophils # 0.3 K/mm3 (0.0-0.4); Eosinophils % 2.5 % (0.1-12.0); Hematocrit 42.1 % (37.0-47.0); Hemoglobin 13.9 g/dL (12.2-16.2); Lymphocytes # 3.4 K/mm3 (0.7-4.5); Lymphocytes % 25.6 % (10-50); Mean Corpuscular Hemoglobin 29.7 pg (27.0-31.2); Mean Corpuscular Volume 90.2 fl (81-99); Mean Platelet Volume 7.9 fl (7.4-10.4); Monocytes # 0.7 K/mm3 (0.1-1.0); Monocytes % 5.4 % (1.7-9.3); Neutrophils # 8.5 K/mm3 (1.8-7.8); Platelet Count 336 K/mm3 (142-424); Red Blood Count 4.67 M/mm3 (4.20-5.40); Red Cell Distribution Width 12.6 % (11.5-17.5); White Blood Count 13.1 K/mm3 (4.8-10.8)
[2022-02-25 13:32] LABS: Monoscreen (Rapid) Negative (Negative)
--- NOTE | 2022-02-25 13:38 | EXP.UTC ---
Discharge Plan Disposition Patient Disposition: Home, Self-Care Condition: Good Prescriptions Prescriptions: New benzonatate [benzonatate] 100 mg capsule 100 mg PO TIDP PRN (Reason: Cough) Qty: 30 0RF methylprednisolone 4 mg Tablets,Dose Pack 4 mg PO DIRECTED Qty: 21 0RF amoxicillin-pot clavulanate 875-125 mg Tablet 1 tab PO Q12H Qty: 20 0RF No Action ondansetron 4 MG tablet,disintegrating 4 mg PO Q8HP PRN (Reason: Nausea) Qty: 20 0RF azithromycin 250 MG tablet 250 mg PO DIRECTED Qty: 6 0RF Rx Instructions: Take two (2) tablets on day #1, then one (1) tablet day #2 thru #5 azithromycin 250 MG tablet 250 mg PO DIRECTED Qty: 6 0RF Rx Instructions: Take two (2) tablets on day #1, then one (1) tablet day #2 thru #5 methylprednisolone 4 MG tablet 4 mg PO DIRECTED Qty: 21 0RF Rx Instructions: Take as directed on package instructions albuterol sulfate 200 PUFFS HFA aerosol inhaler 1 - 2 puffs IH Q4HP PRN (Reason: Shortness Of Breath) Qty: 1 0RF Referrals Follow up/Referrals: Satinder Garcia MD [Primary Care Provider] - See instructions Activity Restrictions/Add. Instructions Additional Instructions/Restrictions: Drink plenty of fluids. Take tylenol or ibuprofen for pain or fever. Take the medications as directed. Follow up with your regular doctor. GO TO THE ER FOR ANY WORSENING SYMPTOMS Quarantine until you know the results of your covid-19 test. Notify your school or workplace of your results and follow their instructions regarding return to work/school. Clinical Impressions Clinical Impression: Acute bronchitis, Pharyngitis Instructions Patient Instructions: Strep Throat, DI for Strep Throat Discharge ED Provider: Satinder Pinon [facility] [place] HPI General Stated complaint: possible strep Mode of Arrival: Ambulatory Source of Information: Patient Limitations: No Limitations Time Seen by Provider: 02/25/22 13:38 Description of Symptoms (Recalled from Triage Doc. by RN): pt comes in with c/o sore throat, swollen lymph nodes, productive cough, drainage. symptoms have been ongoing for 3 weeks but past 3 days symptoms have gotten worse. HEENT Symptoms (Recalled from RN notes): Yes Resp Symptoms (Recalled from RN notes): Yes Skin Symptoms (Recalled from RN notes): No MS Symptoms (Recalled from RN notes): No Functional Status (Recalled from RN notes): n/a History of Present Illness Provider Complaint: She states that she has had a sore throat for the past 3 weeks. Related Data Previous Rx's Medication Instructions Recorded albuterol sulfate 90 mcg/actuation 1 - 2 puffs IH Q4HP PRN Shortness 03/16/20 aerosol inhaler Of Breath #1 inh azithromycin 250 mg tablet 250 mg PO DIRECTED #6 tabs 03/16/20 methylprednisolone 4 mg tablet 4 mg PO DIRECTED #21 tabs 03/16/20 ondansetron 4 mg disintegrating 4 mg PO Q8HP PRN Nausea ##20 03/17/20 tablet azithromycin 250 mg tablet 250 mg PO DIRECTED #6 tabs 07/28/21 amoxicillin 875 mg-potassium 1 tab PO Q12H #20 tabs 02/25/22 clavulanate 125 mg tablet benzonatate 100 mg capsule 100 mg PO TIDP PRN Cough #30 caps 02/25/22 methylprednisolone 4 mg tablets in 4 mg PO DIRECTED #21 tabs 02/25/22 a dose pack Allergies Allergy/AdvReac Type Severity Reaction Status Date / Time codeine [CODEINE] Allergy Unknown Verified 02/25/22 12:07 Worker's Comp Is this a Worker's Comp case?: No PFSH PFSH Social History Smoking Status: Current every day smoker alcohol intake: never current occupational status: other Travel in the last 8 weeks: None ROS Obtained: Yes All systems reviewed & no additional complaints except as documented Constitutional Constitutional: Reports chills and Reports fever(s) Eyes Eyes: Denies eye discharge ENT Ears, Nose, Mouth, and Throat: Reports as per HPI Cardiovascular Cardiovascular: Denies chest pain
[2022-02-25 14:00] VITALS: BP 133/73; PULSE 85; RESP 16; TEMP 36.7
== END 2022-02-25 14:03 | disposition home or self-care (01) ==
PROVIDERS: Emergency Provider Nurse Practitioner Family; PCP Internal Medicine Adolescent Medicine
DX: J20.9 Acute bronchitis, unspecified (principal); J02.9 Acute pharyngitis, unspecified; F17.210 Nicotine dependence, cigarettes, uncomplicated
CPT/HCPCS: 85025; 86318; 87880; 96372; 99212; C9803; G0463; J0696; U0003; U0005

== ENCOUNTER 2022-04-23 08:59 | Emergency (ER) | payer OTHER, SELFPAY ==
--- NOTE | 2022-04-23 09:14 | EXP.UTC ---
Discharge Plan Disposition Patient Disposition: Home, Self-Care Condition: Good Prescriptions Prescriptions: New azithromycin [Zithromax] 250 mg tablet 250 mg PO UD DOSE PK Qty: 6 0RF Rx Instructions: Take two (2) tablets today, then one (1) tablet days #2 thru #5 oseltamivir [Tamiflu] 75 mg capsule 75 mg PO BID Qty: 10 0RF methylprednisolone 4 mg Tablets,Dose Pack 4 mg PO DIRECTED Qty: 21 0RF [id number] [Bromfed DM] 2-30-10 mg/5 mL Syrup 5 ml PO Q6H PRN (Reason: Cough) Qty: 240 0RF No Action ondansetron 4 MG tablet,disintegrating 4 mg PO Q8HP PRN (Reason: Nausea) Qty: 20 0RF azithromycin 250 MG tablet 250 mg PO DIRECTED Qty: 6 0RF Rx Instructions: Take two (2) tablets on day #1, then one (1) tablet day #2 thru #5 azithromycin 250 MG tablet 250 mg PO DIRECTED Qty: 6 0RF Rx Instructions: Take two (2) tablets on day #1, then one (1) tablet day #2 thru #5 methylprednisolone 4 MG tablet 4 mg PO DIRECTED Qty: 21 0RF Rx Instructions: Take as directed on package instructions albuterol sulfate 200 PUFFS HFA aerosol inhaler 1 - 2 puffs IH Q4HP PRN (Reason: Shortness Of Breath) Qty: 1 0RF benzonatate [benzonatate] 100 mg capsule 100 mg PO TIDP PRN (Reason: Cough) Qty: 30 0RF methylprednisolone 4 mg Tablets,Dose Pack 4 mg PO DIRECTED Qty: 21 0RF amoxicillin-pot clavulanate 875-125 mg Tablet 1 tab PO Q12H Qty: 20 0RF Referrals Follow up/Referrals: Torres Soriano MD [Primary Care Provider] - See instructions Activity Restrictions/Add. Instructions Additional Instructions/Restrictions: Drink plenty of fluids. Take tylenol or ibuprofen for pain or fever. Take the medications as directed. Follow up with your regular doctor. GO TO THE ER FOR ANY WORSENING SYMPTOMS Throw your tooth brush away and get a new one. Quarantine until you know the results of your covid-19 test. Notify your school or workplace of your results and follow their instructions regarding return to work/school. Clinical Impressions Clinical Impression: Pharyngitis, Viral syndrome, Exposure to influenza Stand Alone Forms Stand Alone Forms: Work/School Release Instructions Patient Instructions: DI for Strep Throat, DI for Influenza -- Adult Discharge ED Provider: Satinder Pinon [facility] [place] HPI General Stated complaint: Cough,Congestion,Sore throat Time Seen by Provider: 04/23/22 09:14 History of Present Illness Provider Complaint: She has felt bad for the past 2 days. She has a sore throat, chills, body aches and a cough. Her daughter currently has both strep and influnenza Related Data Previous Rx's Medication Instructions Recorded albuterol sulfate 90 mcg/actuation 1 - 2 puffs IH Q4HP PRN Shortness 03/16/20 aerosol inhaler Of Breath #1 inh azithromycin 250 mg tablet 250 mg PO DIRECTED #6 tabs 03/16/20 methylprednisolone 4 mg tablet 4 mg PO DIRECTED #21 tabs 03/16/20 ondansetron 4 mg disintegrating 4 mg PO Q8HP PRN Nausea ##20 03/17/20 tablet azithromycin 250 mg tablet 250 mg PO DIRECTED #6 tabs 07/28/21 amoxicillin 875 mg-potassium 1 tab PO Q12H #20 tabs 02/25/22 clavulanate 125 mg tablet benzonatate 100 mg capsule 100 mg PO TIDP PRN Cough #30 caps 02/25/22 methylprednisolone 4 mg tablets in 4 mg PO DIRECTED #21 tabs 02/25/22 a dose pack azithromycin 250 mg tablet 250 mg PO UD DOSE PK #6 tabs 04/23/22 (Zithromax) [id number]-[id number] 5 ml PO Q6H PRN Cough #240 mL 04/23/22 2 mg-30 mg-10 mg/5 mL oral syrup (Bromfed DM) methylprednisolone 4 mg tablets in 4 mg PO DIRECTED #21 tabs 04/23/22 a dose pack oseltamivir 75 mg capsule (Tamiflu) 75 mg PO BID #10 caps 04/23/22 Allergies Allergy/AdvReac Type Severity Reaction Status Date / Time codeine [CODEINE] Allergy Unknown Verified 04/23/22 09:33 PFSH [facility] Social History (Reviewed 04/23/22 @ 10:58 by Satinder
[2022-04-23 09:27] VITALS: BP 134/88; PULSE 82; RESP 16; TEMP 36.9; O2SAT 97; BMI 29.5
[2022-04-23 09:34] LABS: UTC Strep Screen (Rapid) Negative (Negative)
[2022-04-23 09:35] LABS: UTC Influenza A Antigen Negative (Negative); UTC Influenza B Antigen Negative (Negative)
[2022-04-23 10:11] VITALS: BP 134/88; PULSE 82; RESP 16; TEMP 36.9
== END 2022-04-23 10:12 | disposition home or self-care (01) ==
PROVIDERS: Emergency Provider Nurse Practitioner Family; PCP Internal Medicine Adolescent Medicine
DX: J02.9 Acute pharyngitis, unspecified (principal); R06.02 Shortness of breath; R11.0 Nausea; R05.9 Cough, unspecified; M79.10 Myalgia, unspecified site; F17.200 Nicotine dependence, unspecified, uncomplicated; Z79.51 Long term (current) use of inhaled steroids; Z79.899 Other long term (current) drug therapy; Z88.5 Allergy status to narcotic agent
CPT/HCPCS: 87804; 87880; 99213; G0463

== ENCOUNTER 2022-06-13 08:06 | Emergency (ER) | payer OTHER, SELFPAY ==
[2022-06-13 08:27] VITALS: BP 135/98; PULSE 90; RESP 15; TEMP 36.9; O2SAT 99; BMI 27.2
[2022-06-13 08:31] LABS: UTC Strep Screen (Rapid) Negative (Negative)
[2022-06-13 08:32] LABS: UTC Influenza A Antigen Negative (Negative); UTC Influenza B Antigen Negative (Negative)
--- NOTE | 2022-06-13 08:38 | EXP.UTC ---
Discharge Plan Disposition Patient Disposition: Home, Self-Care Condition: Good Prescriptions Prescriptions: New amoxicillin [amoxicillin] 500 mg tablet 500 mg PO TID 10 Days Qty: 30 0RF fbqlbknpqjzmqdt-gtxbalgfj-UI [Bromfed DM] 2-30-10 mg/5 mL Syrup 5 ml PO Q6H PRN (Reason: Cough) Qty: 240 0RF No Action ondansetron 4 MG tablet,disintegrating 4 mg PO Q8HP PRN (Reason: Nausea) Qty: 20 0RF azithromycin 250 MG tablet 250 mg PO DIRECTED Qty: 6 0RF Rx Instructions: Take two (2) tablets on day #1, then one (1) tablet day #2 thru #5 azithromycin 250 MG tablet 250 mg PO DIRECTED Qty: 6 0RF Rx Instructions: Take two (2) tablets on day #1, then one (1) tablet day #2 thru #5 methylprednisolone 4 MG tablet 4 mg PO DIRECTED Qty: 21 0RF Rx Instructions: Take as directed on package instructions albuterol sulfate 200 PUFFS HFA aerosol inhaler 1 - 2 puffs IH Q4HP PRN (Reason: Shortness Of Breath) Qty: 1 0RF benzonatate [benzonatate] 100 mg capsule 100 mg PO TIDP PRN (Reason: Cough) Qty: 30 0RF methylprednisolone 4 mg Tablets,Dose Pack 4 mg PO DIRECTED Qty: 21 0RF amoxicillin-pot clavulanate 875-125 mg Tablet 1 tab PO Q12H Qty: 20 0RF azithromycin [Zithromax] 250 mg tablet 250 mg PO UD DOSE PK Qty: 6 0RF Rx Instructions: Take two (2) tablets today, then one (1) tablet days #2 thru #5 oseltamivir [Tamiflu] 75 mg capsule 75 mg PO BID Qty: 10 0RF methylprednisolone 4 mg Tablets,Dose Pack 4 mg PO DIRECTED Qty: 21 0RF qriapcelfjjjezw-athibsteh-OZ [Bromfed DM] 2-30-10 mg/5 mL Syrup 5 ml PO Q6H PRN (Reason: Cough) Qty: 240 0RF Referrals Follow up/Referrals: Torres Soriano MD [Primary Care Provider] - See instructions Activity Restrictions/Add. Instructions Additional Instructions/Restrictions: Drink plenty of fluids. Take tylenol or ibuprofen for pain or fever. Take the medications as directed. Follow up with your regular doctor. GO TO THE ER FOR ANY WORSENING SYMPTOMS Clinical Impressions Clinical Impression: Pharyngitis, Acute viral syndrome Stand Alone Forms Stand Alone Forms: Work/School Release Instructions Patient Instructions: DI for Pharyngitis/Tonsillopharyngitis -- Adult, DI for Viral Syndrome Discharge ED [place] Satinder [place] [facility] [place] General Stated complaint: sore throat, NOVOA Mode of Arrival: Ambulatory Source of Information: Patient Limitations: No Limitations Time Seen by Provider: 06/13/22 08:37 Description of Symptoms (Recalled from Triage Doc. by RN): pt comes in with /co sore throat, headache, nausea. symptoms began last night. HEENT Symptoms (Recalled from RN notes): Yes Resp Symptoms (Recalled from RN notes): Yes Skin Symptoms (Recalled from RN notes): No MS Symptoms (Recalled from RN notes): No Functional Status (Recalled from RN notes): n/a History of Present Illness Provider Complaint: She c/o sore throat, chills, and malaise that began yesterday. She gets strep throat frequently and wants to be checked for that. Related Data Previous Rx's Medication Instructions Recorded albuterol sulfate 90 mcg/actuation 1 - 2 puffs IH Q4HP PRN Shortness 03/16/20 aerosol inhaler Of Breath #1 inh azithromycin 250 mg tablet 250 mg PO DIRECTED #6 tabs 03/16/20 methylprednisolone 4 mg tablet 4 mg PO DIRECTED #21 tabs 03/16/20 ondansetron 4 mg disintegrating 4 mg PO Q8HP PRN Nausea ##20 03/17/20 tablet azithromycin 250 mg tablet 250 mg PO DIRECTED #6 tabs 07/28/21 amoxicillin 875 mg-potassium 1 tab PO Q12H #20 tabs 02/25/22 clavulanate 125 mg tablet benzonatate 100 mg capsule 100 mg PO TIDP PRN Cough #30 caps 02/25/22 methylprednisolone 4 mg tablets in 4 mg PO DIRECTED #21 tabs 02/25/22 a dose pack azithromycin 250 mg tablet 250 mg PO UD DOSE PK #6 tabs 04/23/22 (Zithromax) ejeedxutmowctwy-gosptgbzfrovilg-HK 5 ml PO Q6H PRN Cough #240 mL 04/23/22 2 mg-30 mg-10 m
[2022-06-13 09:17] VITALS: BP 135/98; PULSE 90; RESP 15; TEMP 36.9
[2022-06-13 09:23] LABS: Adenovirus,PCR Not Detected (NotDetected); Bordetella Pertussis Not Detected (NotDetected); Chlamydophila Pneumoniae, PCR Not Detected (NotDetected); Coronavirus 19, PCR Not Detected (NotDetected); Coronavirus 229E Not Detected (NotDetected); Coronavirus NL63 Not Detected (NotDetected); Coronavirus OC43 Not Detected (NotDetected); Coronovirus HKU1,PCR Not Detected (NotDetected); Human Metapneumovirus Not Detected (NotDetected); Influenza A, PCR Not Detected (NotDetected); Influenza AH1, 2009 Not Detected (NotDetected); Influenza AH1, PCR Not Detected (NotDetected); Influenza AH3,PCR Not Detected (NotDetected); Influenza B, PCR Not Detected (NotDetected); Mycoplasma Pneumoniae, PCR Not Detected (NotDetected); Parainfluenza 1, PCR Not Detected (NotDetected); Parainfluenza 2, PCR Not Detected (NotDetected); Parainfluenza 3, PCR Not Detected (NotDetected); Parainfluenza 4, PCR Not Detected (NotDetected); Respiratory Syncytial Virus Not Detected (NotDetected)
[2022-06-13 17:53] LABS: Rhinovirus/Enterovirus Detected (NotDetected)
== END 2022-06-13 09:21 | disposition home or self-care (01) ==
PROVIDERS: Emergency Provider Nurse Practitioner Family; PCP Internal Medicine Adolescent Medicine
DX: J02.9 Acute pharyngitis, unspecified (principal); B34.9 Viral infection, unspecified
CPT/HCPCS: 87581; 87632; 87798; 87804; 87880; 99212; C9803; G0463; U0003; U0005

== ENCOUNTER 2023-01-31 15:50 | Emergency (ER) | payer OTHER, SELFPAY ==
[2023-01-31 15:51] VITALS: BP 132/94; PULSE 89; RESP 18; TEMP 36.7; O2SAT 100; BMI 28.0
--- NOTE | 2023-01-31 15:58 | EXP.UTC ---
Discharge Plan Disposition Patient Disposition: Home, Self-Care Condition: Good Prescriptions Prescriptions: New polymyxin B sulf-trimethoprim [Polytrim] 10,000 unit- 1 mg/mL drops 1 drp Eye-Right Q3H 7 Days Qty: 10 0RF Rx Instructions: while awake; do not exceed 6 doses in 24 hours No Action ondansetron 4 MG tablet,disintegrating 4 mg PO Q8HP PRN (Reason: Nausea) Qty: 20 0RF azithromycin 250 MG tablet 250 mg PO DIRECTED Qty: 6 0RF Rx Instructions: Take two (2) tablets on day #1, then one (1) tablet day #2 thru #5 amoxicillin [amoxicillin] 500 mg tablet 500 mg PO TID 10 Days Qty: 30 0RF cjlfhfmyjghcwho-vjunnwoop-DC [Bromfed DM] 2-30-10 mg/5 mL Syrup 5 ml PO Q6H PRN (Reason: Cough) Qty: 240 0RF azithromycin 250 MG tablet 250 mg PO DIRECTED Qty: 6 0RF Rx Instructions: Take two (2) tablets on day #1, then one (1) tablet day #2 thru #5 methylprednisolone 4 MG tablet 4 mg PO DIRECTED Qty: 21 0RF Rx Instructions: Take as directed on package instructions albuterol sulfate 200 PUFFS HFA aerosol inhaler 1 - 2 puffs IH Q4HP PRN (Reason: Shortness Of Breath) Qty: 1 0RF benzonatate [benzonatate] 100 mg capsule 100 mg PO TIDP PRN (Reason: Cough) Qty: 30 0RF methylprednisolone 4 mg Tablets,Dose Pack 4 mg PO DIRECTED Qty: 21 0RF amoxicillin-pot clavulanate 875-125 mg Tablet 1 tab PO Q12H Qty: 20 0RF azithromycin [Zithromax] 250 mg tablet 250 mg PO UD DOSE PK Qty: 6 0RF Rx Instructions: Take two (2) tablets today, then one (1) tablet days #2 thru #5 oseltamivir [Tamiflu] 75 mg capsule 75 mg PO BID Qty: 10 0RF methylprednisolone 4 mg Tablets,Dose Pack 4 mg PO DIRECTED Qty: 21 0RF unxvipjdessjxwr-pilfsmqdl-NW [Bromfed DM] 2-30-10 mg/5 mL Syrup 5 ml PO Q6H PRN (Reason: Cough) Qty: 240 0RF Referrals Follow up/Referrals: Torres Soriano MD [Primary Care Provider] - See instructions Activity Restrictions/Add. Instructions Additional Instructions/Restrictions: Use the eye drops as directed. Strict hand washing in the house hold, because conjunctivitis is very contagious. Follow up with your regular doctor. GO TO THE ER FOR ANY WORSENING SYMPTOMS OR CONCERNS Clinical Impressions Clinical Impression: Conjunctivitis of right eye Stand Alone Forms Stand Alone Forms: Work/School Release Instructions Patient Instructions: How to Instill Eye Drops, Conjunctivitis, DI for Conjunctivitis Discharge ED Provider: Satinder Pinon [facility] [place] HPI General Stated complaint: RT eye swollen watery Time Seen by Provider: 01/31/23 15:58 Description of Symptoms (Recalled from Triage Doc. by RN): She states that she has had right eye redness and irritation for the past 3 days. She wears contacts. Related Data Previous Rx's Medication Instructions Recorded albuterol sulfate 90 mcg/actuation 1 - 2 puffs IH Q4HP PRN Shortness 03/16/20 aerosol inhaler Of Breath #1 inh azithromycin 250 mg tablet 250 mg PO DIRECTED #6 tabs 03/16/20 methylprednisolone 4 mg tablet 4 mg PO DIRECTED #21 tabs 03/16/20 ondansetron 4 mg disintegrating 4 mg PO Q8HP PRN Nausea ##20 03/17/20 tablet azithromycin 250 mg tablet 250 mg PO DIRECTED #6 tabs 07/28/21 amoxicillin 875 mg-potassium 1 tab PO Q12H #20 tabs 02/25/22 clavulanate 125 mg tablet benzonatate 100 mg capsule 100 mg PO TIDP PRN Cough #30 caps 02/25/22 methylprednisolone 4 mg tablets in 4 mg PO DIRECTED #21 tabs 02/25/22 a dose pack azithromycin 250 mg tablet 250 mg PO UD DOSE PK #6 tabs 04/23/22 (Zithromax) nvjptsfjfgjulsb-nbockfuebvyutde-AZ 5 ml PO Q6H PRN Cough #240 mL 04/23/22 2 mg-30 mg-10 mg/5 mL oral syrup (Bromfed DM) methylprednisolone 4 mg tablets in 4 mg PO DIRECTED #21 tabs 04/23/22 a dose pack oseltamivir 75 mg capsule (Tamiflu) 75 mg PO BID #10 caps 04/23/22 amoxicillin 500 mg tablet 500 mg PO TID 10 days #30 tabs 06/13/22 bromphenirami
[2023-01-31 16:43] VITALS: BP 132/94; PULSE 89; RESP 18; TEMP 36.7; O2SAT 100
== END 2023-01-31 16:43 | disposition home or self-care (01) ==
PROVIDERS: Emergency Provider Nurse Practitioner Family; PCP Internal Medicine Adolescent Medicine
DX: H10.31 Unspecified acute conjunctivitis, right eye (principal); F17.210 Nicotine dependence, cigarettes, uncomplicated
CPT/HCPCS: 99212; 99214; G0463

== ENCOUNTER 2023-08-07 19:36 | Outpatient (CLI) | payer OTHER, SELFPAY | END 2023-08-07 23:59 | LOC: LAB.DROPOF 19:37 | PROVIDERS: PCP Student in an Organized Health Care Education/Training Program; Visit Provider Student in an Organized Health Care Education/Training Program | DX: J02.9 Acute pharyngitis, unspecified (principal) | CPT/HCPCS: 87070 ==

== ENCOUNTER 2025-01-16 22:31 | Emergency (ER) | payer OTHER, SELFPAY ==
--- NOTE | 2025-01-16 22:29 | ECG_ITS ---
APPROVED REPORT Exam: Resting ECG HR:65 bpm ECG Measurements Heart Rate 65 AXES ID 174 P 53 QRSd 97 QRS 87 QT 405 T 42 QTc 416 Conclusion SINUS RHYTHM POSSIBLE LEFT ATRIAL ENLARGEMENT [-0.1mV P-WAVE IN V1/V2] BORDERLINE ECG No STEMI Electronically signed by : YOSEF VALENCIA, 01/17/2025 06:35:29
--- OUTSIDE RECORDS SUMMARY | 2025-01-16 22:41 | XMS_ITS | Clinical Summary ---
Author Organization [facility] Address [address] [place] [address] Care Team Providers Care Water Team Leader Name Role Phone Satinder Garcia MD Primary Care Provider [phone] Mikaela Pettit MD Unavailable [phone] Allergies Active Allergy Reactions Criticality Noted Date Comments Codeine Hives Medium 12/14/2021 Medications No known medications Active Problems Problem Noted Date Diagnosed Date Tobacco use disorder 12/14/2021 Immunizations Immunization Administration Dates Next Due Influenza, injectable, quadrivalent 04/22/2018 Influenza, seasonal, injectable, preservative fr ee 04/24/2016 Tdap 07/05/2016 Family History Medical History Relation Name Comments Skin cancer Maternal Grandfather Lung cancer Paternal Grandmother Relation Name Status Comments Maternal Grandfather Paternal Grandmother Social History Tobacco Use Types Packs/Day Years Used Date Smoking Tobacco: Former Cigarettes Q uit: 09/16/2021 Smokeless Tobacco: Current Comments:vapes PHQ-2 Answer Date Recorded Patient Health Questionnaire-2 Score 0 12/14/2021 Comments Unknown Sex and Gender Information Value Date Recorded Sex Assigned at Not on file Legal Sex Female 6:11 PM EDT Gender Identity Not on file Sexual Orientation Not on file Last Filed Vital Signs Vital Sign Reading Time Taken Comments Blood Pressure 121/82 12/28/2021 11:23 AM EDT Pulse 86 12/28/2021 11:23 AM EDT Temperature 36.6 C (97.8 F) 12/28/2021 11:23 AM EDT Respiratory Rate 18 12/28/2021 11:23 AM EDT Oxygen Saturation 98% 12/28/2021 11:23 AM EDT Inhaled Oxygen Concentration - - Weight 90.3 kg (199 lb 1.2 oz) 12/28/2021 11:23 AM EDT Height 175.3 cm (5' 9 ) 12/14/2021 2:29 PM EDT Body Mass Index 29.4 12/14/2021 2:29 PM EDT Plan of Treatment Health Maintenance Due Date Last Done Comments [facility]-Depression Screening 1996 [facility]-Infant/Child/Adol SDOH Screenings 1996 HPV Vaccines (2 - 3-dose series) 10/14/2012 09/16/2012 [facility]- SDOH Screenings 2014 [facility]-Adult SDOH Screenings 2014 [facility]-Pap Smear 2017 [id number] Vaccine ( season) 2024 12/22/2021, 05/25/2021, 08/25/2020 [facility]-Influenza Vaccine (#1) 02/16/202506/28, 04/28/2019, 04/22/2018, Additional history exists [facility]-DTaP,Tdap,and Td Vaccines (8 - Td or Tdap) 07/05/2026 07/05/2016, 02/07/2008, 09/11/2001, Additional history exists [facility]-Zoster Vaccines (1 of 2) 2046 02/24/2019, 12/21/1997 [facility]-Hepatitis B Vaccines Completed 998, 01/19/1997, 1996 [facility]-IPV Vaccines Completed 09/11/2001, 11/1997, 03/27/1997, Additional history exists [facility]-Hepatitis A Vaccines Completed 02/24/2019, 01/17 [facility]-Varicella Vaccines Completed 02/24/2019, 1997 [facility]-HIB Vaccines Aged Out No longer e ligible based on patient's age to complete this topic [facility]-Pneumococcal Vaccine: Pediatrics (0 to 5 Years) and At-Risk Patients (6 to 49 Years) Aged Out No longer eligible based on patient's age to complete this topic [facility]-Rotavirus Vaccines Aged Out No lo nger eligible based on patient's age to complete this topic [place] [address] [facility] Care Teams Water Team Leader Relationship Specialty Start Date End Date Satinder Garcia MD [address] [address] PCP - General 12/14/21 Mikaela Pettit MD [address] [address] Surgeon Cardiothoracic Surgery 12/28/21
[2025-01-16 22:57] VITALS: BP 131/77; PULSE 62; RESP 16; TEMP 36.9; O2SAT 100; BMI 27.2
--- NOTE | 2025-01-16 23:03 | CT_ITS ---
PROCEDURE INFORMATION: Exam: CT Abdomen And Pelvis With Contrast Exam date and time: 01/16/2025 11:35 PM Age: 29 years old Clinical indication: Other: Near-syncope; Abdominal pain; Additional info: Near-syncope R lower abd pain TECHNIQUE: Imaging protocol: Computed tomography of the abdomen and pelvis with contrast. Radiation optimization: All CT scans at this facility use at least one of these dose optimization techniques: automated exposure control; mA and/or kV adjustment per patient size (includes targeted exams where dose is matched to clinical indication); or iterative reconstruction. Contrast material: ISOVUE; Contrast volume: 75 ml; Contrast route: IV; COMPARISON: CR XR CHEST 2V 01/16/2025 11:29 PM FINDINGS: Liver: Mild periportal edema. No mass. Gallbladder and biliary ducts: Unremarkable. No calcified stones. No ductal dilation. Pancreas: Unremarkable. No ductal dilation. Spleen: Unremarkable. No splenomegaly. Adrenal glands: Unremarkable. No mass. Kidneys and ureters: No nephroureterolithiasis or hydroureter. Stomach and bowel: Nonobstructive pattern. Appendix: No evidence of appendicitis. Intraperitoneal space: Unremarkable. No free air. No significant fluid collection. Vasculature: Unremarkable. No abdominal aortic aneurysm. Lymph nodes: Unremarkable. No enlarged lymph nodes. Urinary bladder: Unremarkable as visualized. Reproductive: Unremarkable as visualized. Bilateral tubal ligation clips. Bones/joints: Unremarkable. No acute fracture. Soft tissues: Unremarkable. IMPRESSION: Mild periportal edema. Although nonspecific, can be seen with hepatitis and/or hepatic congestion. Otherwise, grossly unremarkable study.
--- NOTE | 2025-01-16 23:03 | XR_ITS ---
PROCEDURE INFORMATION: Exam: XR Chest Exam date and time: 01/16/2025 11:29 PM Age: 29 years old Clinical indication: Other: Near syncope TECHNIQUE: Imaging protocol: Radiologic exam of the chest. Views: 2 views. COMPARISON: CR XR CHEST 2V 10/20/2019 12:42 AM FINDINGS: Lungs: Hyperinflated lungs. No consolidation. Pleural spaces: Unremarkable. No pleural effusion. No pneumothorax. Heart/Mediastinum: Unremarkable. No cardiomegaly. Bones/joints: Unremarkable. IMPRESSION: Hyperinflated lungs without infiltration identified.
[2025-01-16] MEDS: LACTATED RINGERS 1000ML 1,000 ML 999 ML IV (23:07)
[2025-01-16 23:12] LABS: Hematocrit 38.7 % (37.0-47.0); Hemoglobin 12.7 g/dL (12.2-16.2); Immature Granulocytes % 0.2 %; Mean Corpuscular HGB Conc 32.8 g/dL (31.8-35.4); Mean Corpuscular Hemoglobin 29.3 pg (27.0-31.2); Mean Corpuscular Volume 89.2 fl (81-99); Nucleated Red Blood Cells % 0 %; Platelet Count 281 K/mm3 (142-424); Red Blood Count 4.34 M/mm3 (4.20-5.40); Red Cell Distribution Width-SD 38.9 fL; White Blood Count 8.5 K/mm3 (4.8-10.8)
[2025-01-16 23:15] LABS: Albumin Level 4.0 g/dl (3.5-5.0); Chloride 102 mmol/L (98-107); Potassium 3.9 mmoL/L (3.5-5.1); Sodium 135 mmol/L (136-145)
[2025-01-16 23:17] LABS: HCG Qualitative, Serum Negative (Negative)
[2025-01-16 23:18] LABS: Alanine Aminotransferase 25 U/L (12-78); Albumin/Globulin Ratio 1.0 (1.1-1.8); Alkaline Phosphatase 62 U/L (38-126); Anion Gap 9.9 mEq/L (5-15); Aspartate Amino Transferase 44 U/L (14-36); Bilirubin,Total 0.3 mg/dl (0.2-1.3); Blood Urea Nitrogen 22 mg/dl (7-17); Carbon Dioxide 27 mmol/L (22.0-30.0); Creatinine Clearance Estimated 163 mL/min (50-200); Creatinine,Serum 0.70 mg/dl (0.52-1.04); Estimated Glomerular Filt Rate 100 ml/min (>60); GFR (African American) 121 ML/MIN (>60); Globulin 4.0 g/dL (1.3-3.2); Total Protein,Serum 8.0 g/dl (6.3-8.2)
[2025-01-16 23:19] LABS: Calcium 9.7 mg/dl (8.4-10.2); Glucose 123 mg/dl (74-100)
[2025-01-16 23:31] LABS: Troponin I < 0.01 ng/ml (0.00-0.034)
[2025-01-16] MEDS: SODIUM CHLORIDE 0.9% 10ML SYR (RAD ONLY) 10 ML IV (23:34)
[2025-01-16] MEDS: IOPAMIDOL-370 (76%);100ML BOTTLE 75 ML IV (23:34)
[2025-01-16 23:51] LABS: Free T4 (Free Thyroxine) 1.17 ng/dl (0.78-2.19)
[2025-01-16 23:52] VITALS: BP 126/78; PULSE 68; RESP 12; O2SAT 98
[2025-01-16 23:55] LABS: Microscopic, Urine URINE MICROSCOPIC (MICROSCOPIC)
[2025-01-16 23:57] LABS: Bilirubin,Urine Negative (Negative); Color,Urine YELLOW (Yellow); Glucose,Urine (UA) Negative (Negative); Ketones,Urine 1+ (Negative); Leukocyte Esterase,Urine Negative (Negative); PH,Urine 6.5 (5.0-8.5); Protein,Urine Negative (Negative); Specific Gravity, Urine 1.015 (1.005-1.030); Urobilinogen,Urine 0.2 EU/dl (0.2)
[2025-01-17 00:06] LABS: Thyroid Stimulating Hormone 1.08 uIU/mL (0.465-4.68)
[2025-01-17 00:08] LABS: Hepatitis C Ab Qual. W/ RFX NEGATIVE (Negative)
[2025-01-17 00:09] LABS: Bacteria,Urine Trace /lpf; Mucus,Urine 1+ /lpf; WBC,Urine Occasional #/hpf (0-3)
--- NOTE | 2025-01-17 00:28 | [facility].EDGENADL ---
Discharge Plan Disposition Patient Disposition: Home, Self-Care Condition: Good Prescriptions Prescriptions: No Action No Known Home Medications amoxicillin 500 mg capsule 500 mg PO BID Qty: 20 0RF [id number] [Bromfed DM] 2-30-10 mg/5 mL syrup 10 ml PO Q6H PRN (Reason: cough/cold symptoms) Qty: 150 0RF Referrals Follow up/Referrals: Provider,Referral, MD [Primary Care Provider, Medical] - See instructions Activity Restrictions/Add. Instructions Additional Instructions/Restrictions: You were evaluated in the ER and I believe to be appropriate for discharge at this time. Take Tylenol and ibuprofen at home to help with symptoms. Drink plenty of water to maintain good hydration. Make an appointment with your primary care doctor for reevaluation in a few days. Also follow-up with OB if you continue having discomfort with your period. Return to the ER with any new, worsening, or otherwise concerning symptoms as discussed. Clinical Impressions Clinical Impression: Near syncope, Right lower quadrant abdominal pain, Prerenal azotemia Instructions Patient Instructions: DI for Syncope in Adults (Fainting), DI for Syncope in Children (Fainting) Print Language Print Language: Cuban Discharge ED Provider: Wili Collado General Adult HPI General Chief complaint: Syncope Stated complaint: syncopal episode Time Seen by Provider: 01/16/25 23:03 Mode of Arrival: Wheelchair Source of Information: Patient Description of Symptoms (Recalled from ER Triage Doc. by RN): Pt presents to ED via wheelchair foe a near syncopal event. Pt states she felt light headed and dizzy. Pt also has RLQ pain. Pt thought she started her period today however it's just light bleeding. Pt is diaphoretic and pale. Pt rates pain 7/10 and is A&O*4. History of Present Illness HPI narrative: 29-year-old female presents to the ER for near syncopal event. 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 She states she has been having gradual, progressive right lower quadrant pain for the last day. She states her period started today and she has been having cramping, the pain intensified significantly immediately before her lightheadedness, sweating, and dizziness. Patient reports she did start to get tunnel vision but did not actually pass out. She denies palpitations or chest pain, no difficulty breathing. No nausea, vomiting, or diarrhea. Patient took Midol shortly prior to arrival. Patient reports pain is 7 out of 10. She has no history of abdominal surgeries. Most recent period was 28 days ago. Patient states pain is tolerable at this time and she feels well. She has been eating and drinking, blood glucose on arrival was normal Related Data Home Medications ?Medication ?Instructions ?Recorded ?Confirmed No Known Home Medications 12/02/24 12/02/24 Previous Rx's ?Medication ?Instructions ?Recorded amoxicillin 500 mg capsule 500 mg PO BID #20 caps 12/02/24 [id number]-[id number] 10 ml PO Q6H PRN cough/cold 12/02/24 2 mg-30 mg-10 mg/5 mL oral syrup symptoms #150 mL (Bromfed DM) Allergies Allergy/AdvReac Type Severity Reaction Status Date / Time codeine (CODEINE) Allergy Unknown Verified 12/02/24 08:59 [facility] Disclaimer: The information contained in this section may have been updated after the patient was seen, as this information can be updated by other users. Medical History Accidental cannabis overdose Pharyngitis Corneal abrasion Surgical History No significant past surgical history Family History Other No significant family history Social History Smoking Status: Unknown if ever smoked alcohol intake: never current occupational status: other Travel in the last 8 weeks?: None Have you lived/traveled outside [place] in past 30 days?: No Contact w/someone who lives/traveled outside [place] past 30 days?: No Exposure to someone with infectious disease in past 14 days?: No Do you have a fever (greater than 100.4 F or 38 C)?: No Have you tested positive for COVID-19?: No Exposed to someone with COVID-19 in past 14 days?: No Do you have a sore throat?: No Do you have a cough?: No Do you have any weakness?: No Do you have any diarrhea?: No Are you experiencing any unusual bleeding?: No Do you have any muscle aches/pain?: No Do you have any abdominal pain?: No Are you experiencing loss of taste or smell?: No Other Medical History Have you received the Flu Vaccine for this season: No Have you received the Pneumonia Vaccine: No ROS Obtained: Yes Systems reviewed as appropriate & no additional complaints except as documented Per HPI Physical Exam General General appearance: alert and in no apparent distress Head Head exam: atraumatic and normocephalic Eye Eye exam: Present PERRL and EOMI ENT ENT exam: Present mucous membranes moist Neck Neck exam: Present normal inspection and full ROM Chest Chest inspection: Present symmetric chest wall rise Respiratory Respiratory exam: Present normal lung sounds bilaterally; Absent respiratory distress, wheezes or stridor Cardiovascular Cardiovascular exam: Present regular rate and normal rhythm Abdominal Exam Abdominal exam: Present soft; Absent distention, tenderness, guarding or rebound Comment: Patient describes discomfort in her right lower quadrant but has no tenderness, rebound, or guarding Extremities Exam Extremities exam: Present full ROM Neurological Exam Neurological exam: Present alert and oriented X3; Absent motor sensory deficit Psychiatric Psychiatric exam: Present normal affect and normal mood Skin Skin exam: Present warm and dry Medical Decision Making Medical Records Medical records reviewed: Yes I reviewed the patient's medical records. Screening: Per USPSTF and CDC recommendations, given the prevalence of disease in our region, it is our hospital?s policy to screen for HIV and viral Hepatitis for all patients aged 18 and over and those with ongoing risk factors. Georges Inquiry Pt receiving controlled substance: No Vital Signs: 01/16/25 22:57 01/16/25 23:52 01/17/25 00:30 Temperature 98.4 F Temperature Source Tympanic Pulse Rate 68 63 Pulse Rate [Left] 62 Respiratory Rate 16 12 14 Blood Pressure 126/78 135/91 H Blood Pressure [Right Arm] 131/77 Blood Pressure Mean [Right Arm] 95 02 Sat by Pulse Oximetry 100 98 99 Oxygen Delivery Method Room Air Lab Data Lab Results 01/16/25 22:15: Urine Color Cancelled, Urine Appearance Cancelled, Urine pH Cancelled, Ur Specific [place] Cancelled, Urine Protein Cancelled, Urine Glucose (UA) Cancelled, Urine Ketones Cancelled, Urine Blood Cancelled, Urine Nitrate Cancelled, Urine Bilirubin Cancelled, Urine Urobilinogen Cancelled, Ur Leukocyte Esterase Cancelled, Urine RBC Cancelled, Urine WBC Cancelled, Ur Squamous Epith Cells Cancelled, Ur Transition Epith Cell Cancelled, Ur Renal Epithelial Cell Cancelled, Calcium Carbonate Cryst Cancelled, Calcium Phosphate Cryst Cancelled, Calcium Oxalate Crystal Cancelled, Cystine Crystals Cancelled, Uric Acid Crystals Cancelled, Triple Phos Crystals Cancelled, Tyrosine Crystals Cancelled, Other Crystals Cancelled, Amorphous Sediment Cancelled, Other Sediment Cancelled, Urine Bacteria Cancelled, Fatty Casts Cancelled, Hyaline Casts Cancelled, Fine Granular Casts Cancelled, Coarse Granular Casts Cancelled, Waxy Casts Cancelled, RBC Casts Cancelled, WBC Casts Cancelled, Other Casts Cancelled, Urine Mucus Cancelled, Urine Trichomonas Cancelled, Urine Yeast Cancelled, Urine Sperm Cancelled 01/16/25 22:32: WBC 8.5, RBC 4.34, Hgb 12.7, Hct 38.7, MCV 89.2, MCH 29.3, MCHC 32.8, RDW 11.9, Plt Count 281, MPV 11.0 H, Neut % (Auto) 64.2, Lymph % (Auto) 29.7, Hancock % (Auto) 4.0, Eos % (Auto) 1.2, Baso % (Auto) 0.7, Neut # (Auto) 5.5, Lymph # (Auto) 2.5, Hancock # (Auto) 0.3, Eos # (Auto) 0.1, Baso # (Auto) 0.1, Sodium 135 L, Potassium 3.9, Chloride 102, Carbon Dioxide 27, Anion Gap 9.9, BUN 22 H, Creatinine 0.70, Estimated Creat Clear 163, Estimated GFR 100, Est GFR ( Amer) 121, Glucose 123 H, Calcium 9.7, Total Bilirubin 0.3, AST 44 H, ALT 25, Alkaline Phosphatase 62, Troponin I < 0.01, Total Protein 8.0, Albumin 4.0, Globulin 4.0 H, Albumin/Globulin Ratio 1.0 L, TSH 1.08, Free T4 1.17, Serum HCG, Qual Negative, HCV Ab BREANNA w/Rflx PCR Qn Negative, HIV Ag/Ab Combo Qual Negative 01/16/25 23:51: Urine Color Yellow, Urine Appearance Clear, Urine pH 6.5, Ur Specific [place] 1.015, Urine Protein Negative, Urine Glucose (UA) Negative, Urine Ketones 1+, Urine Blood Trace-i, Urine Nitrate Negative, Urine Bilirubin Negative, Urine Urobilinogen 0.2, Ur Leukocyte Esterase Negative, Urine WBC Occasional, Ur Squamous Epith Cells 3-5, Urine Bacteria Trace, Urine Mucus 1+ 01/16/25 22:32 01/16/25 22:32 Orders (Tests/Meds): ED MEDICATIONS Generic Name Dose Route Start Last Admin Trade Name Freq PRN Reason Stop Dose Admin Sodium Chloride 10 ml 01/16/25 23:33 01/16/25 23:34 Sodium Chloride 0.9% 10ml Syr (Rad Only) IV 02/15/25 23:32 10 ml NEEDED PRN Administration Maintain IV Site Discontinued Medications Generic Name Dose Route Start Last Admin Trade Name Freq PRN Reason Stop Dose Admin Lactated Ringer's 1,000 mls @ 999 mls/hr 01/16/25 23:03 01/16/25 23:07 Lactated Ringer's 1000 Ml Bag IV 01/17/25 00:03 999 mls/hr .Q1H1M ONE Administration Iopamidol 75 ml 01/16/25 23:33 01/16/25 23:34 Iopamidol-370 (76%);100ml Bottle IV 01/16/25 23:34 75 ml ONCE ONE Administration Ketorolac Tromethamine 30 mg 01/17/25 00:46 Ketorolac 30mg/Ml Vial IV 01/17/25 00:47 ONCE ONE ORDERS Category Date Time Status CT abdomen pelvis w con Stat Cat Scan 01/16/25 23:03 Completed CXR 2 view (NOT portable) [XR chest 2V] Stat Exams 01/16/25 23:03 Completed CBC w/Auto Diff [Complete Blood Count Auto Diff] Stat Lab 01/16/25 22:32 Completed CMP [Comprehensive Metabolic Panel] Stat Lab 01/16/25 22:32 Completed Free T4 (Free Thyroxine) Stat Lab 01/16/25 22:32 Completed HCG Qualitative, Serum Stat Lab 01/16/25 22:32 Completed HIV Combo Stat Lab 01/16/25 22:32 Completed Hepatitis C Ab Qual. W/ RFX Stat Lab 01/16/25 22:32 Completed Thyroid Stimulating Hormone Stat Lab 01/16/25 22:32 Completed Trop I [Troponin I] Stat Lab 01/16/25 22:32 Completed Troponin I Q3H Lab 01/17/25 02:15 Ordered Troponin I Q3H Lab 01/17/25 05:15 Ordered Urinalysis and Microscopic Stat Lab 01/16/25 23:51 Completed Medical Decision Narrative: In summary, this 29-year-old female presents to the emergency department today with right lower quadrant pain and near-syncope. On initial evaluation patient is hemodynamically stable, afebrile, cardiopulmonary exam benign, abdominal exam does not demonstrate any tenderness, rebound, or guarding the patient still has pain in the right lower quadrant, remainder of exam benign. Differential diagnosis includes but is not limited to vasovagal episode, electrolyte abnormality, palpitations or arrhythmia, considered ACS but have low suspicion for this, patient is PERC negative though I did consider PE, considered the possibility of of pain causing vasovagal episode, did consider the possibility of ovarian torsion though her gradual onset of pain is not consistent with this especially since her pain was controlled simply with Midol. Additionally considered the possibility of biliary pathology though her pain is very low for this, and considered appendicitis, UTI, and others. Based on these concerns, I ordered serum labs, urine studies, CT imaging. ECG personally interpreted demonstrates sinus rhythm, rate 65, normal axis, normal MA and QTc, no STEMI, no WPW, no Brugada, no HCM, no prolonged QT. Patient received IV fluids for treatment. Labs personally reviewed demonstrate no leukocytosis or anemia, platelets normal, CMP with mild prerenal azotemia and slight elevation of AST but otherwise unremarkable, nonactionable. Troponin undetectably low less than 0.01, hCG negative, UA negative for findings of infection. XR personally interpreted demonstrates no acute thoracic abnormality, see radiology read for final interpretation. CT imaging personally interpreted demonstrate no acute pathology in the right lower quadrant, I do not appreciate ureterolithiasis, appendicitis, bowel obstruction, ovarian mass, or other abnormalities. I do not appreciate ovarian cyst or any right lower quadrant fat stranding. See radiology read for final interpretation which does discuss periportal edema which does not correlate clinically with the patient's symptoms. Since there is no ovarian cyst or mass, no fat stranding, patient's pain was controlled with Midol and was gradual in onset I do not have suspicion for ovarian torsion at this time. TVUS not ordered. No drop in blood pressure or tachycardia with orthostatic vitals. On reassessment patient is resting more comfortably, she has not had any lightheadedness or near syncopal symptoms. Toradol was administered to keep pain controlled overnight but patient is comfortable being discharged which I believe is reasonable at this time. She was given instructions for continued symptomatic monitoring and management, follow-up, instructions to maintain good hydration since she had mild prerenal azotemia, and strict return precautions for the ER. She indicated understanding and the patient was discharged in stable condition. Critical Care Critical Care Time Critical Care Time: No
[2025-01-17 00:30] VITALS: BP 135/91; PULSE 63; RESP 14; O2SAT 99
[2025-01-17] MEDS: KETOROLAC 30MG/ML VIAL 30 MG IV (00:50)
[2025-01-17 00:52] VITALS: BP 126/83; BP 132/85; BP 133/80; PULSE 69; PULSE 75
[2025-01-17 00:59] VITALS: BP 132/85; PULSE 75; RESP 14; TEMP 36.6; O2SAT 98
== END 2025-01-17 01:00 | disposition home or self-care (01) ==
PROVIDERS: Emergency Medicine; Emergency Provider Student in an Organized Health Care Education/Training Program
DX: R10.31 Right lower quadrant pain (principal); R55 Syncope and collapse; R39.2 Extrarenal uremia
CPT/HCPCS: 71046; 74177; 80053; 81001; 84439; 84443; 84484; 84703; 85025; 86803; 87389; 93005; 96361; 96374; 99285; J1885; J7120; Q9967

== ENCOUNTER 2025-05-25 10:56 | Outpatient (CLI) | payer OTHER, SELFPAY ==
[2025-05-25 15:15] LABS: Coronavirus 19, PCR Not Detected (NotDetected); Influenza A, PCR Not Detected (NotDetected); Influenza B, PCR Not Detected (NotDetected)
== END 2025-05-25 23:59 | disposition home or self-care (01) ==
LOC: LAB.DROPOF 05-26 14:41
PROVIDERS: Visit Provider Student in an Organized Health Care Education/Training Program
DX: J06.9 Acute upper respiratory infection, unspecified (principal)
CPT/HCPCS: 87631